=== PATIENT | male | born 1965 | race Caucasian/White ===

== ENCOUNTER 2019-11-25 15:00 | Outpatient (RCR) | payer OTHER ==
[~2019-11-25 15:00] MED LIST: VICODIN
== END 2019-12-16 ==
LOC: PT 15:00
PROVIDERS: ATTEND Specialist
DX: S76.311A Strain of muscle, fascia and tendon of the posterior muscle group at thigh level, right thigh, initial encounter (principal)
CPT/HCPCS: 97139